=== PATIENT | male | born 1945 | race Caucasian/White ===

== ENCOUNTER 2020-11-23 09:58 | Inpatient (IN) ==
[2020-11-23] MEDS ORDERED: Nitroglycerin 0.4 MG TAB.SUBL SL PRN (10:13)
[2020-11-23] MEDS ORDERED: Aspirin 325 MG TABLET PO ONE (10:13)
[2020-11-23 10:57] LABS: Basophils # 0.1 K/mcL (0.0-0.2); Basophils % 0.7 %; Eosinophils # 0.2 K/mcL (0.0-0.6); Eosinophils % 2.9 %; Immature Granulocytes % 0.6 % (0-4); Lymphocytes # 1.5 K/mcL (0.6-4.6); Lymphocytes % 21.2 %; Mean Corpuscular HGB Conc 31.1 g/dL (31.6-35.5); Mean Corpuscular Hemoglobin 30.4 pg (28.0-33.3); Mean Corpuscular Volume 97.6 fL (83.0-100.0); Mean Platelet Volume 9.9 fL (9.4-12.4); Monocytes # 0.8 K/mcL (0.0-1.3); Monocytes % 10.5 %; Neutrophils # 4.7 K/mcL (1.6-8.9); Platelet Count 163 K/mcL (140-400); Red Blood Count 4.61 M/mcL (4.19-5.50); Red Cell Distribution Width 14.5 % (11.5-14.5); Segmented Neutrophils % 64.1 %; White Blood Count 7.3 K/mcL (4.3-11.1)
[2020-11-23 11:05] LABS: Prothrombin Time 11.7 Seconds (9.4-12.1)
[2020-11-23 11:08] LABS: Activated Partial Thrombo Time 28.4 Seconds (26.0-36.0)
[2020-11-23 11:56] LABS: Albumin 3.2 g/dL (3.5-5.7); Albumin/Globulin Ratio 0.9 (1.1-2.2); Bilirubin,Total 0.4 mg/dL (0.3-1.0); Calcium 11.5 mg/dL (8.6-10.3); Globulin 3.6 g/dL (2.4-3.5); Potassium 3.8 mEq/L (3.5-5.1); Total Protein 6.8 g/dL (6.4-8.9)
[2020-11-23 12:01] LABS: Troponin I 0.61 ng/mL (< 0.04)
[2020-11-23] MEDS ORDERED: Heparin 25,000UNIT/250ML 1/2NS 25,000 UNIT/250 ML IV.SOLN IVC SCH (12:15)
[2020-11-23] MEDS ORDERED: *HR* Heparin 5,000 UNIT/ML VIAL IVP PRN ×2 (12:15)
[2020-11-23] MEDS ORDERED: Naloxone 0.4 MG/ML INJ IVP PRN (12:43)
[2020-11-23] MEDS: hydrALAZINE 25 MG TABLET PO SCH (16:15)
[2020-11-23] MEDS: Bumetanide 1 MG/4 ML VIAL IVP SCH ×2 (16:16→16:21)
[2020-11-23] MEDS: carvediloL 6.25 MG TABLET PO SCH (16:16)
[2020-11-23] MEDS ORDERED: Bumetanide 1 MG/4 ML VIAL IVP SCH (17:00)
[2020-11-23] MEDS: Heparin 25,000UNIT/250ML 1/2NS 25,000 UNIT/250 ML IV.SOLN IVC SCH (20:33)
[2020-11-23] MEDS ORDERED: Bumetanide 1 MG TABLET PO SCH (21:00)
[2020-11-24] MEDS: hydrALAZINE 25 MG TABLET PO SCH ×4 (00:30→23:39)
[2020-11-24 02:34] LABS: Basophils # 0.1 K/mcL (0.0-0.2); Eosinophils # 0.4 K/mcL (0.0-0.6); Eosinophils % 5.3 %; Hematocrit 44.3 % (37.5-50.1); Immature Granulocytes % 0.4 % (0-4); Lymphocytes # 2.2 K/mcL (0.6-4.6); Lymphocytes % 31.1 %; Mean Corpuscular HGB Conc 31.6 g/dL (31.6-35.5); Mean Corpuscular Hemoglobin 30.4 pg (28.0-33.3); Mean Corpuscular Volume 96.1 fL (83.0-100.0); Monocytes # 0.6 K/mcL (0.0-1.3); Monocytes % 9.2 %; Neutrophils # 3.7 K/mcL (1.6-8.9); Platelet Count 145 K/mcL (140-400); Red Blood Count 4.61 M/mcL (4.19-5.50); Red Cell Distribution Width 14.3 % (11.5-14.5)
[2020-11-24 02:50] LABS: Calcium 10.3 mg/dL (8.6-10.3); Potassium 3.8 mEq/L (3.5-5.1)
[2020-11-24] MEDS: carvediloL 6.25 MG TABLET PO SCH ×2 (07:46→16:07)
[2020-11-24] MEDS: Heparin 25,000UNIT/250ML 1/2NS 25,000 UNIT/250 ML IV.SOLN IVC SCH ×2 (07:46→23:39)
[2020-11-24] MEDS: Bumetanide 1 MG/4 ML VIAL IVP SCH ×2 (07:46→16:07)
[2020-11-24] MEDS ORDERED: Perflutren Lipid Microsphere 1.3 ML in 0.9 % Sodium Chloride 8.7 ML IVP PRN (10:44)
[2020-11-24] MEDS: Aspirin Enteric Coated 81 MG Tablet PO SCH (16:07)
[2020-11-24] MEDS: metOLazone 5 MG TABLET PO SCH (16:08)
[2020-11-24] MEDS: Sacubitril/Valsartan 97/103 MG 1 TAB TABLET PO SCH (21:08)
[2020-11-25 06:09] LABS: Basophils # 0.1 K/mcL (0.0-0.2); Eosinophils # 0.5 K/mcL (0.0-0.6); Eosinophils % 6.6 %; Hemoglobin 13.1 g/dL (12.9-16.9); Immature Granulocytes % 0.9 % (0-4); Lymphocytes # 2.2 K/mcL (0.6-4.6); Lymphocytes % 31.9 %; Mean Corpuscular Hemoglobin 30.2 pg (28.0-33.3); Mean Corpuscular Volume 94.5 fL (83.0-100.0); Mean Platelet Volume 10.1 fL (9.4-12.4); Monocytes # 0.6 K/mcL (0.0-1.3); Monocytes % 9.1 %; Neutrophils # 3.4 K/mcL (1.6-8.9); Platelet Count 138 K/mcL (140-400); Red Blood Count 4.34 M/mcL (4.19-5.50); Red Cell Distribution Width 14.4 % (11.5-14.5); Segmented Neutrophils % 50.5 %; White Blood Count 6.8 K/mcL (4.3-11.1)
[2020-11-25 06:31] LABS: Calcium 8.9 mg/dL (8.6-10.3); Potassium 3.7 mEq/L (3.5-5.1)
[2020-11-25] MEDS: Bumetanide 1 MG/4 ML VIAL IVP SCH (07:47)
[2020-11-25] MEDS: carvediloL 6.25 MG TABLET PO SCH ×2 (07:47→15:22)
[2020-11-25] MEDS: Sacubitril/Valsartan 97/103 MG 1 TAB TABLET PO SCH ×2 (07:47→20:57)
[2020-11-25] MEDS: hydrALAZINE 25 MG TABLET PO SCH ×2 (07:47→15:22)
[2020-11-25] MEDS: Aspirin Enteric Coated 81 MG Tablet PO SCH (07:47)
[2020-11-25] MEDS: amLODIPine 5 MG TABLET PO SCH (07:49)
[2020-11-25] MEDS: 0.9 % Sodium Chloride 1,000 ML IVC SCH (15:21)
[2020-11-25] MEDS: Heparin 25,000UNIT/250ML 1/2NS 25,000 UNIT/250 ML IV.SOLN IVC SCH (15:23)
[2020-11-25] MEDS: Apixaban 5 MG TABLET PO SCH (17:36)
[2020-11-25 21:32] LABS: Sodium, Urine 97.5 mEq/L
[2020-11-26 06:22] LABS: Basophils # 0.1 K/mcL (0.0-0.2); Basophils % 1.5 %; Eosinophils # 0.4 K/mcL (0.0-0.6); Eosinophils % 5.9 %; Hematocrit 44.4 % (37.5-50.1); Hemoglobin 14.1 g/dL (12.9-16.9); Immature Granulocytes % 1.1 % (0-4); Lymphocytes # 1.8 K/mcL (0.6-4.6); Lymphocytes % 29.6 %; Mean Corpuscular HGB Conc 31.8 g/dL (31.6-35.5); Mean Corpuscular Hemoglobin 30.4 pg (28.0-33.3); Mean Corpuscular Volume 95.7 fL (83.0-100.0); Mean Platelet Volume 9.5 fL (9.4-12.4); Monocytes # 0.6 K/mcL (0.0-1.3); Monocytes % 9.8 %; Neutrophils # 3.2 K/mcL (1.6-8.9); Platelet Count 151 K/mcL (140-400); Red Blood Count 4.64 M/mcL (4.19-5.50); Red Cell Distribution Width 14.7 % (11.5-14.5); Segmented Neutrophils % 52.1 %; White Blood Count 6.1 K/mcL (4.3-11.1)
[2020-11-26 06:37] LABS: Calcium 8.7 mg/dL (8.6-10.3); Potassium 4.1 mEq/L (3.5-5.1)
[2020-11-26] MEDS: 0.9 % Sodium Chloride 1,000 ML IVC SCH (06:45)
[2020-11-26] MEDS: hydrALAZINE 25 MG TABLET PO SCH ×2 (07:30→08:56)
[2020-11-26] MEDS: carvediloL 6.25 MG TABLET PO SCH (08:56)
[2020-11-26] MEDS: amLODIPine 5 MG TABLET PO SCH (08:57)
[2020-11-26] MEDS: Sacubitril/Valsartan 97/103 MG 1 TAB TABLET PO SCH (08:57)
[2020-11-26] MEDS: Apixaban 5 MG TABLET PO SCH (10:09)
[2020-11-26] MEDS: metOLazone 5 MG TABLET PO SCH (10:09)
[2020-11-26] MEDS ORDERED: Isosorbide MONOnitrate (24 HR) 30 MG TAB.ER.24H PO SCH (10:15)
[2020-11-26] MEDS ORDERED: Bumetanide 1 MG TABLET PO SCH (10:45)
[2020-11-26 11:14] VITALS: BP 99/62
== END 2020-11-26 13:36 | disposition home or self-care (01) | DRG 280 ==
LOC: EMEROOARM 09:58 → 3BNU 09:58 → SUATTDRO 17:41
PROVIDERS: ADMIT Internal Medicine; ATTEND General Practice